=== PATIENT | male | born 1965 | race Caucasian/White ===

== ENCOUNTER 2019-02-27 07:00 | Inpatient (IN) | payer OTHER ==
[~2019-02-27] VITALS: Ht 177.8 cm; Wt 128.6 kg
[2019-04-02] MEDS ORDERED: AMLO5TAB9 PO (10:23)
[2019-04-03] MEDS ORDERED: RINGERS SOLUTION,LACTATED 1,000 ML IV ONE ×2 (04:59→05:00)
[2019-04-03] MEDS ORDERED: CeFAZolin 2 GM/DEXTROSE 50 ML IV ONE ×2 (04:59→07:00)
[2019-04-03 05:51] LABS: BASOPHILS % (AUTO) 1.2 % (0.0-2.0); HEMATOCRIT 45.8 % (41-53); HEMOGLOBIN 15.6 g/dL (13.5-17.5); LYMPHOCYTES % (AUTO) 23.5 % (22.0-44.0); MEAN CORPUSCULAR HEMOGLOBIN 31.4 pg (26.0-34.0); MEAN CORPUSCULAR HGB CONC 34.2 G/dL (31.0-37.0); MEAN CORPUSCULAR VOLUME 92 fL (80-100); MONOCYTES # (AUTO) 0.9 K/uL (0.1-1.0); MONOCYTES % (AUTO) 11.1 % (2.0-9.0); NEUTROPHILS # (AUTO) 5.1 K/uL (1.8-7.7); NEUTROPHILS % (AUTO) 60.2 % (40.0-70.0); PLATELET COUNT (AUTO) 315 K/uL (150-450); RED BLOOD CELL COUNT(AUTO) 4.98 MIL/uL (4.50-5.90); RED CELL DISTRIBUTION WIDTH 13.5 % (11.5-14.5)
[2019-04-03 06:00] LABS: ANION GAP 9 mmol/L (8-16); CALCIUM, TOTAL 8.9 mg/dL (8.8-10.5); CARBON DIOXIDE 27 mmol/L (22-29); CHLORIDE 104 mmol/L (98-107); CREATININE 0.96 mg/dL (0.60-1.30); GLOMERULAR FILTR. RATE CALC > 60 mL/min (>60); GLUCOSE,RANDOM 110 mg/dL (70-110); POTASSIUM 3.9 mmol/L (3.5-5.1); SODIUM SERUM 140 mmol/L (136-145); UREA NITROGEN, BLOOD 12 mg/dL (7-18)
[2019-04-03 06:04] LABS: PROTHROMBIN TIME 10.1 SEC (9.4-11.6)
[2019-04-03 06:06] LABS: ALANINE AMINOTRANSFERASE 32 U/L (12-78); ALBUMIN 3.9 g/dL (3.4-5.0); ALKALINE PHOSPHATASE 86 U/L (46-116); ASPARTATE AMINOTRANSFERASE 16 U/L (15-37); BILIRUBIN,TOTAL 0.5 mg/dL (0.1-1.0); TOTAL PROTEIN, SERUM 7.7 g/dL (6.4-8.2)
[2019-04-03] MEDS ORDERED: VANCOMYCIN HCL 1 GM/VIAL ONE (06:19)
[2019-04-03] MEDS ORDERED: RINGERS LACTATED IV ONE (06:19)
[2019-04-03] MEDS ORDERED: BUPIVACAINE HCL/PF 0.5% 30 ML VIAL ONE (06:20)
[2019-04-03] MEDS ORDERED: MICROFIBRILLAR COLLAGEN 1 GM PACKAGE TP ONE (06:20)
[2019-04-03] MEDS ORDERED: BUPIVACAINE LIPOSOME/PF 1.3%-13.3MG/ML SUSPENSION 20 ML VIAL INJ STA (06:22)
[2019-04-03] MEDS ORDERED: SODIUM CHLORIDE 0.9% 30 ML ONE (07:27)
[2019-04-03] MEDS ORDERED: OxyCODONE HCL 5 MG IR TABLET PO PRN (07:45)
[2019-04-03] MEDS ORDERED: TRANEXAMIC ACID 1,000 MG in DEXTROSE 5%-WATER 50 ML IV ONE (07:45)
[2019-04-03] MEDS ORDERED: MEPERIDINE-PF 25 MG/ML VIAL IVP PRN (07:45)
[2019-04-03] MEDS ORDERED: ZOLPIDEM TARTRATE 5 MG TABLET PO PRN (07:45)
[2019-04-03] MEDS ORDERED: HYDROmorphone 2 MG/ML SYRINGE IVP PRN (07:45)
[2019-04-03] MEDS ORDERED: FentaNYL CITRATE-PF 100 MCG/2 ML VIAL IVP PRN (07:45)
[2019-04-03] MEDS ORDERED: ONDANSETRON HCL 4 MG/2 ML VIAL IVP PRN (07:45)
[2019-04-03] MEDS ORDERED: OXYGEN THERAPY IH SCH (08:00)
[2019-04-03] MEDS ORDERED: BACITRACIN 28.4 GM OINTMENT TP ONE (09:24)
[2019-04-03] MEDS ORDERED: MUPIROCIN CALCIUM 2% 22 GM OINTMENT ONE (09:25)
[2019-04-03] MEDS ORDERED: ZOLPIDEM TARTRATE 10 MG TABLET PO PRN (10:18)
[2019-04-03] MEDS ORDERED: ACETAMINOPHEN 325 MG TABLET PO PRN (11:00)
[2019-04-03] MEDS ORDERED: MAGNESIUM HYDROXIDE SUSPENSION 30 ML UDCUP PO PRN (11:00)
[2019-04-03] MEDS ORDERED: ROCURONIUM BROMIDE 10 MG/ML 5 ML VIAL IVP ONE (12:00)
[2019-04-03] MEDS ORDERED: FentaNYL CITRATE-PF 100 MCG/2 ML VIAL IVP ONE (12:00)
[2019-04-03] MEDS ORDERED: LIDOCAINE/PF 2% 5 ML VIAL INJ ONE (12:00)
[2019-04-03] MEDS ORDERED: PROPOFOL 1% 20 ML VIAL IVP ONE (12:00)
[2019-04-03] MEDS ORDERED: EPHEDrine SULFATE 50 MG/ML VIAL IM ONE (12:00)
[2019-04-03] MEDS ORDERED: MIDAZOLAM HCL 2 MG/2 ML VIAL IVP ONE (12:00)
[2019-04-03] MEDS ORDERED: 0.9% SODIUM CHLORIDE 10 ML VIAL IVP ONE (12:00)
[2019-04-03] MEDS ORDERED: ONDANSETRON HCL 4 MG/2 ML VIAL IVP ONE (12:00)
[2019-04-03] MEDS ORDERED: SUCCINYLCHOLINE CHLORIDE 20 MG/ML 10 ML VIAL IVP ONE (12:00)
[2019-04-03] MEDS ORDERED: HYDROmorphone 2 MG/ML SYRINGE IVP ONE (12:00)
[2019-04-03] MEDS ORDERED: DEXAMETHASONE SOD PHOS 4 MG/ML VIAL IVP ONE (12:00)
[2019-04-03 12:05] VITALS: BP 157/87
[2019-04-03] MEDS: ACETAMINOPHEN 1000 MG/ISO-OSM 100 ML IV SCH ×2 (12:40→18:01)
[2019-04-03] MEDS: HYDROmorphone 2 MG/ML SYRINGE IVP PRN ×3 (12:58→21:59)
[2019-04-03] MEDS: CeFAZolin 2 GM/DEXTROSE 50 ML IV SCH ×2 (14:53→22:49)
[2019-04-03] MEDS: OxyCODONE HCL 10 MG IR TABLET PO PRN ×2 (14:59→19:53)
[2019-04-03] MEDS: CYCLOBENZAPRINE HCL 10 MG TABLET PO PRN (14:59)
[2019-04-03 16:01] VITALS: BP 140/83
[2019-04-03] MEDS: OXYGEN THERAPY IH SCH (19:53)
[2019-04-03 20:09] VITALS: BP 129/76
[2019-04-04 00:28] VITALS: BP 118/98
[2019-04-04] MEDS: CYCLOBENZAPRINE HCL 10 MG TABLET PO PRN (00:31)
[2019-04-04] MEDS: ACETAMINOPHEN 1000 MG/ISO-OSM 100 ML IV SCH ×2 (00:32→06:05)
[2019-04-04 04:00] VITALS: BP 129/75
[2019-04-04] MEDS: HYDROmorphone 2 MG/ML SYRINGE IVP PRN ×4 (04:57→17:43)
[2019-04-04 05:01] LABS: BASOPHILS % (AUTO) 0.2 % (0.0-2.0); EOSINOPHILS % (AUTO) 0 % (1.0-6.0); HEMATOCRIT 40.8 % (41-53); HEMOGLOBIN 13.6 g/dL (13.5-17.5); LYMPHOCYTES # (AUTO) 1.8 K/uL (1.0-4.8); LYMPHOCYTES % (AUTO) 11.5 % (22.0-44.0); MEAN CORPUSCULAR HEMOGLOBIN 30.8 pg (26.0-34.0); MEAN CORPUSCULAR HGB CONC 33.4 G/dL (31.0-37.0); MEAN CORPUSCULAR VOLUME 92 fL (80-100); MONOCYTES # (AUTO) 2.5 K/uL (0.1-1.0); MONOCYTES % (AUTO) 15.6 % (2.0-9.0); NEUTROPHILS # (AUTO) 11.7 K/uL (1.8-7.7); NEUTROPHILS % (AUTO) 72.7 % (40.0-70.0); PLATELET COUNT (AUTO) 297 K/uL (150-450); RED BLOOD CELL COUNT(AUTO) 4.43 MIL/uL (4.50-5.90); RED CELL DISTRIBUTION WIDTH 13.6 % (11.5-14.5)
[2019-04-04 05:12] LABS: ANION GAP 8 mmol/L (8-16); CALCIUM, TOTAL 8.3 mg/dL (8.8-10.5); CARBON DIOXIDE 27 mmol/L (22-29); CHLORIDE 102 mmol/L (98-107); CREATININE 1.01 mg/dL (0.60-1.30); GLOMERULAR FILTR. RATE CALC > 60 mL/min (>60); GLUCOSE,RANDOM 111 mg/dL (70-110); POTASSIUM 3.9 mmol/L (3.5-5.1); SODIUM SERUM 137 mmol/L (136-145); UREA NITROGEN, BLOOD 12 mg/dL (7-18)
[2019-04-04 07:30] VITALS: BP 153/97
[2019-04-04] MEDS: OXYGEN THERAPY IH SCH ×2 (08:00→20:00)
[2019-04-04] MEDS: OxyCODONE HCL 10 MG IR TABLET PO PRN (08:20)
[2019-04-04] MEDS: FAMOTIDINE 20 MG TABLET PO SCH (10:04)
[2019-04-04] MEDS: ENOXAPARIN SODIUM 30 MG/0.3 ML PF SYRINGE SQ SCH ×2 (10:05→20:12)
[2019-04-04 11:46] VITALS: BP 120/73
[2019-04-04 15:40] VITALS: BP 157/77
[2019-04-04 19:57] VITALS: BP 139/81
[2019-04-04] MEDS: HYDROCODONE/ACETAMINOPHEN 10-325 MG TABLET PO PRN ×2 (20:12→23:29)
[2019-04-05 00:07] VITALS: BP 142/81
[2019-04-05] MEDS: HYDROCODONE/ACETAMINOPHEN 10-325 MG TABLET PO PRN ×2 (03:43→12:47)
[2019-04-05 05:49] VITALS: BP 152/78
[2019-04-05 07:40] VITALS: BP 146/80
[2019-04-05] MEDS: OXYGEN THERAPY IH SCH (08:00)
[2019-04-05] MEDS: ENOXAPARIN SODIUM 30 MG/0.3 ML PF SYRINGE SQ SCH (08:12)
[2019-04-05] MEDS: FAMOTIDINE 20 MG TABLET PO SCH (08:12)
[2019-04-05] MEDS: HYDROmorphone 2 MG/ML SYRINGE IVP PRN (10:10)
[2019-04-05 11:10] VITALS: BP 150/99
[2019-04-05 15:25] VITALS: BP 156/93
[2019-04-05] MEDS ORDERED: PNEUMOCOCCAL VACCINE POLYVALENT 0.5 ML VIAL [PPSV23] IM ONE (16:30)
[2019-04-12] MEDS ORDERED: DOCU-342 PO (13:36)
== END 2019-04-05 16:37 | DRG 481 ==
LOC: 6N 04-03 05:10 → 4E 04-03 06:09
PROVIDERS: ADMIT Orthopaedic Surgery; ATTEND Orthopaedic Surgery
PROC: 0SB94ZZ Excision of Right Hip Joint, Percutaneous Endoscopic Approach (ICD-10-PCS; 2019-04-03)
PROC: 0MQL4ZZ Repair Right Hip Bursa and Ligament, Percutaneous Endoscopic Approach (ICD-10-PCS; principal; 2019-04-03 07:00)
DX: S73.101A Unspecified sprain of right hip, initial encounter (principal); E44.0 Moderate protein-calorie malnutrition; Z68.41 Body mass index [BMI] 40.0-44.9, adult; E66.01 Morbid (severe) obesity due to excess calories; D72.829 Elevated white blood cell count, unspecified; X58.XXXA Exposure to other specified factors, initial encounter; Y93.89 Activity, other specified; Y92.89 Other specified places as the place of occurrence of the external cause; Z85.47 Personal history of malignant neoplasm of testis; Y99.8 Other external cause status
CPT/HCPCS: 73502; 86850; 86900; 86901; 87081; 88304; 88311; 93005; 97110; 97116; 97163; 97166; 97530; 97535; C9290; G0378; J0131; J0330; J0690; J1100; J1170; J1650; J2250; J2405; J2704; J3010; J3370; J3490; J7060; J7120

== ENCOUNTER 2019-04-05 16:25 | Inpatient (IN) | payer OTHER ==
[~2019-04-05] VITALS: Ht 177.8 cm; Wt 127.0 kg
[~2019-04-05 16:25] MED LIST: AMLO5TAB9 PO
[2019-04-05] MEDS ORDERED: ONDANSETRON HCL 4 MG TABLET PO PRN (17:30)
[2019-04-05] MEDS ORDERED: MAGNESIUM HYDROXIDE SUSPENSION 30 ML UDCUP PO PRN (17:30)
[2019-04-05] MEDS ORDERED: CYCLOBENZAPRINE HCL 10 MG TABLET PO PRN (17:30)
[2019-04-05] MEDS ORDERED: INFLUENZA VIRUS VACCINE QVS 2019-20 (3YR+)/PF 60 MCG/0.5 ML SYRINGE IM ONE (17:45)
[2019-04-05] MEDS ORDERED: PNEUMOCOCCAL VACCINE POLYVALENT 0.5 ML VIAL [PPSV23] IM ONE (19:00)
[2019-04-05] MEDS: DOCUSATE SODIUM 100 MG CAPSULE PO SCH (20:20)
[2019-04-05] MEDS: SENNA 187 MG TABLET PO SCH (20:20)
[2019-04-05 20:22] VITALS: BP 138/79
[2019-04-05] MEDS: ACETAMINOPHEN 325 MG TABLET PO PRN (20:22)
[2019-04-05] MEDS: OxyCODONE HCL/ACETAMINOPHEN 10-325 MG TABLET PO PRN (21:20)
[2019-04-05 23:19] VITALS: BP 147/79
[2019-04-06] MEDS: 0.9% SODIUM CHLORIDE 10 ML SYRINGE IVP SCH ×2 (03:37→09:24)
[2019-04-06 07:37] LABS: LYMPHOCYTES # (AUTO) 1.2 K/uL (1.0-4.8); MONOCYTES # (AUTO) 1.6 K/uL (0.1-1.0); NEUTROPHILS % (AUTO) 77.2 % (40.0-70.0)
[2019-04-06 08:02] LABS: ALANINE AMINOTRANSFERASE 53 U/L (12-78); ALBUMIN 2.7 g/dL (3.4-5.0); ALKALINE PHOSPHATASE 77 U/L (46-116); ANION GAP 14 mmol/L (8-16); ASPARTATE AMINOTRANSFERASE 47 U/L (15-37); BILIRUBIN,TOTAL 0.8 mg/dL (0.1-1.0); CALCIUM, TOTAL 8.7 mg/dL (8.8-10.5); CARBON DIOXIDE 28 mmol/L (22-29); CHLORIDE 99 mmol/L (98-107); CREATININE 0.97 mg/dL (0.60-1.30); GLOMERULAR FILTR. RATE CALC > 60 mL/min (>60); GLUCOSE,RANDOM 143 mg/dL (70-110); POTASSIUM 3.8 mmol/L (3.5-5.1); SODIUM SERUM 141 mmol/L (136-145); TOTAL PROTEIN, SERUM 7.1 g/dL (6.4-8.2); UREA NITROGEN, BLOOD 11 mg/dL (7-18)
[2019-04-06 08:18] LABS: BASOPHILS % (AUTO) 0.2 % (0.0-2.0); EOSINOPHILS % (AUTO) 0.9 % (1.0-6.0); HEMATOCRIT 40.7 % (41-53); LYMPHOCYTES % (AUTO) 9.1 % (22.0-44.0); MEAN CORPUSCULAR HEMOGLOBIN 31.3 pg (26.0-34.0); MEAN CORPUSCULAR HGB CONC 34.3 G/dL (31.0-37.0); MEAN CORPUSCULAR VOLUME 91 fL (80-100); MONOCYTES % (AUTO) 12.6 % (2.0-9.0); NEUTROPHILS # (AUTO) 10.1 K/uL (1.8-7.7); PLATELET COUNT (AUTO) 280 K/uL (150-450); RED BLOOD CELL COUNT(AUTO) 4.47 MIL/uL (4.50-5.90); RED CELL DISTRIBUTION WIDTH 13.6 % (11.5-14.5)
[2019-04-06 09:01] VITALS: BP 136/80
[2019-04-06] MEDS: DOCUSATE SODIUM 100 MG CAPSULE PO SCH ×2 (09:24→20:25)
[2019-04-06] MEDS: HYDROCODONE/ACETAMINOPHEN 10-325 MG TABLET PO PRN ×2 (09:24→13:54)
[2019-04-06] MEDS: FAMOTIDINE 20 MG TABLET PO SCH (09:24)
[2019-04-06] MEDS: ENOXAPARIN SODIUM 30 MG/0.3 ML PF SYRINGE SQ SCH (09:24)
[2019-04-06] MEDS: AmLODIPine BESYLATE 5 MG TABLET PO SCH (12:40)
[2019-04-06 16:00] VITALS: BP 120/74
[2019-04-06] MEDS: SENNA 187 MG TABLET PO SCH (20:25)
[2019-04-06] MEDS: OxyCODONE HCL/ACETAMINOPHEN 10-325 MG TABLET PO PRN (20:26)
[2019-04-07 04:28] VITALS: BP 156/58
[2019-04-07 07:30] VITALS: BP 138/86
[2019-04-07] MEDS: DOCUSATE SODIUM 250 MG CAPSULE PO SCH ×3 (09:00→20:15)
[2019-04-07] MEDS: OxyCODONE HCL/ACETAMINOPHEN 10-325 MG TABLET PO PRN ×2 (09:20→21:07)
[2019-04-07] MEDS: ENOXAPARIN SODIUM 30 MG/0.3 ML PF SYRINGE SQ SCH (09:21)
[2019-04-07] MEDS: FAMOTIDINE 20 MG TABLET PO SCH (09:21)
[2019-04-07] MEDS: AmLODIPine BESYLATE 5 MG TABLET PO SCH (09:21)
[2019-04-07 16:26] VITALS: BP 125/67
[2019-04-07] MEDS: SENNA 187 MG TABLET PO SCH (20:16)
[2019-04-07] MEDS: MELATONIN 3 MG TABLET PO PRN (20:19)
[2019-04-08 06:00] VITALS: BP 134/77
[2019-04-08] MEDS: AmLODIPine BESYLATE 5 MG TABLET PO SCH (08:00)
[2019-04-08] MEDS: FAMOTIDINE 20 MG TABLET PO SCH (08:01)
[2019-04-08] MEDS: DOCUSATE SODIUM 250 MG CAPSULE PO SCH ×2 (08:01→20:46)
[2019-04-08] MEDS: ENOXAPARIN SODIUM 30 MG/0.3 ML PF SYRINGE SQ SCH (08:01)
[2019-04-08] MEDS: ACETAMINOPHEN 325 MG TABLET PO PRN ×2 (08:01→12:08)
[2019-04-08 08:25] VITALS: BP 130/66
[2019-04-08 16:08] VITALS: BP 120/66
[2019-04-08] MEDS: SENNA 187 MG TABLET PO SCH (20:46)
[2019-04-08] MEDS: OxyCODONE HCL/ACETAMINOPHEN 10-325 MG TABLET PO PRN (20:47)
[2019-04-08] MEDS: MELATONIN 3 MG TABLET PO PRN (23:02)
[2019-04-09 00:21] VITALS: BP 129/76
[2019-04-09 08:00] VITALS: BP 134/70
[2019-04-09] MEDS: ENOXAPARIN SODIUM 30 MG/0.3 ML PF SYRINGE SQ SCH (08:01)
[2019-04-09] MEDS: FAMOTIDINE 20 MG TABLET PO SCH (08:02)
[2019-04-09] MEDS: DOCUSATE SODIUM 250 MG CAPSULE PO SCH ×2 (08:02→20:42)
[2019-04-09] MEDS: AmLODIPine BESYLATE 5 MG TABLET PO SCH (08:02)
[2019-04-09 16:04] VITALS: BP 156/90
[2019-04-09] MEDS: SENNA 187 MG TABLET PO SCH (20:42)
[2019-04-09] MEDS: OxyCODONE HCL/ACETAMINOPHEN 10-325 MG TABLET PO PRN (20:42)
[2019-04-09] MEDS: MELATONIN 3 MG TABLET PO PRN (20:44)
[2019-04-10] VITALS: BP 136/80
[2019-04-10 06:18] LABS: BASOPHILS % (AUTO) 1.2 % (0.0-2.0); EOSINOPHILS % (AUTO) 5.9 % (1.0-6.0); HEMATOCRIT 36.5 % (41-53); HEMOGLOBIN 12.7 g/dL (13.5-17.5); LYMPHOCYTES # (AUTO) 1.9 K/uL (1.0-4.8); LYMPHOCYTES % (AUTO) 19.1 % (22.0-44.0); MEAN CORPUSCULAR HEMOGLOBIN 31.6 pg (26.0-34.0); MEAN CORPUSCULAR HGB CONC 34.7 G/dL (31.0-37.0); MEAN CORPUSCULAR VOLUME 91 fL (80-100); MONOCYTES # (AUTO) 1.4 K/uL (0.1-1.0); MONOCYTES % (AUTO) 14.2 % (2.0-9.0); NEUTROPHILS % (AUTO) 59.6 % (40.0-70.0); PLATELET COUNT (AUTO) 414 K/uL (150-450); RED BLOOD CELL COUNT(AUTO) 4.01 MIL/uL (4.50-5.90); RED CELL DISTRIBUTION WIDTH 13.3 % (11.5-14.5)
[2019-04-10 07:15] VITALS: BP 142/84
[2019-04-10] MEDS: FAMOTIDINE 20 MG TABLET PO SCH (08:13)
[2019-04-10] MEDS: AmLODIPine BESYLATE 5 MG TABLET PO SCH (08:13)
[2019-04-10] MEDS: ENOXAPARIN SODIUM 30 MG/0.3 ML PF SYRINGE SQ SCH (08:13)
[2019-04-10] MEDS: DOCUSATE SODIUM 250 MG CAPSULE PO SCH ×2 (08:13→20:40)
[2019-04-10] MEDS: FERROUS GLUCONATE 324 MG TABLET PO SCH (17:50)
[2019-04-10 19:00] VITALS: BP 153/66
[2019-04-10] MEDS: MELATONIN 3 MG TABLET PO PRN (20:39)
[2019-04-10] MEDS: SENNA 187 MG TABLET PO SCH (20:40)
[2019-04-10] MEDS: HYDROCODONE/ACETAMINOPHEN 10-325 MG TABLET PO PRN (20:40)
[2019-04-11 01:00] VITALS: BP 123/72
[2019-04-11 07:20] VITALS: BP 131/69
[2019-04-11] MEDS: FAMOTIDINE 20 MG TABLET PO SCH (08:10)
[2019-04-11] MEDS: DOCUSATE SODIUM 250 MG CAPSULE PO SCH ×2 (08:10→21:21)
[2019-04-11] MEDS: AmLODIPine BESYLATE 10 MG TABLET PO SCH (08:10)
[2019-04-11] MEDS: FERROUS GLUCONATE 324 MG TABLET PO SCH ×2 (08:10→21:21)
[2019-04-11] MEDS: ENOXAPARIN SODIUM 30 MG/0.3 ML PF SYRINGE SQ SCH (08:11)
[2019-04-11 08:30] LABS: BASOPHILS % (AUTO) 1.1 % (0.0-2.0); EOSINOPHILS % (AUTO) 4.6 % (1.0-6.0); HEMOGLOBIN 13.4 g/dL (13.5-17.5); LYMPHOCYTES # (AUTO) 1.7 K/uL (1.0-4.8); LYMPHOCYTES % (AUTO) 17.6 % (22.0-44.0); MEAN CORPUSCULAR HEMOGLOBIN 31.3 pg (26.0-34.0); MEAN CORPUSCULAR HGB CONC 34.3 G/dL (31.0-37.0); MEAN CORPUSCULAR VOLUME 91 fL (80-100); MONOCYTES # (AUTO) 0.6 K/uL (0.1-1.0); MONOCYTES % (AUTO) 6.1 % (2.0-9.0); NEUTROPHILS % (AUTO) 70.6 % (40.0-70.0); PLATELET COUNT (AUTO) 476 K/uL (150-450); RED BLOOD CELL COUNT(AUTO) 4.28 MIL/uL (4.50-5.90); RED CELL DISTRIBUTION WIDTH 13.2 % (11.5-14.5)
[2019-04-11] MEDS ORDERED: INFLUENZA VIRUS VACCINE QVS 2019-20 (3YR+)/PF 60 MCG/0.5 ML SYRINGE IM ONE (14:30)
[2019-04-11 16:06] VITALS: BP 137/84
[2019-04-11] MEDS: SENNA 187 MG TABLET PO SCH (21:00)
[2019-04-11] MEDS: MELATONIN 3 MG TABLET PO PRN (21:21)
[2019-04-11] MEDS: HYDROCODONE/ACETAMINOPHEN 10-325 MG TABLET PO PRN (21:21)
[2019-04-12] VITALS: BP 132/76
[2019-04-12 08:00] VITALS: BP 136/89
[2019-04-12] MEDS: ASPIRIN 325 MG TABLET PO SCH ×2 (08:21→21:44)
[2019-04-12] MEDS: DOCUSATE SODIUM 250 MG CAPSULE PO SCH ×2 (08:21→21:44)
[2019-04-12] MEDS: FAMOTIDINE 20 MG TABLET PO SCH (08:21)
[2019-04-12] MEDS: AmLODIPine BESYLATE 10 MG TABLET PO SCH (08:21)
[2019-04-12] MEDS: FERROUS GLUCONATE 324 MG TABLET PO SCH ×2 (08:21→21:43)
[2019-04-12] MEDS ORDERED: HYDR-4455 PO (13:36)
[2019-04-12] MEDS ORDERED: FAMO20 PO (13:36)
[2019-04-12] MEDS ORDERED: FERG325 PO (13:36)
[2019-04-12] MEDS ORDERED: DOCU250C91 PO (13:36)
[2019-04-12] MEDS ORDERED: ASPI-1484 PO (13:36)
[2019-04-12 15:52] VITALS: BP 124/78
[2019-04-12] MEDS ORDERED: INFLUENZA VIRUS VACCINE QVS 2019-20 (3YR+)/PF 60 MCG/0.5 ML SYRINGE IM ONE (16:45)
[2019-04-12] MEDS: MELATONIN 3 MG TABLET PO PRN (21:44)
[2019-04-12] MEDS: HYDROCODONE/ACETAMINOPHEN 10-325 MG TABLET PO PRN (21:44)
[2019-04-12] MEDS: SENNA 187 MG TABLET PO SCH (21:44)
[2019-04-13 00:06] VITALS: BP 125/74
[2019-04-13 08:08] VITALS: BP 123/78
[2019-04-13] MEDS: DOCUSATE SODIUM 250 MG CAPSULE PO SCH (08:09)
[2019-04-13] MEDS: FAMOTIDINE 20 MG TABLET PO SCH (08:09)
[2019-04-13] MEDS: FERROUS GLUCONATE 324 MG TABLET PO SCH (08:09)
[2019-04-13] MEDS: ASPIRIN 325 MG TABLET PO SCH (08:09)
[2019-04-13] MEDS: AmLODIPine BESYLATE 10 MG TABLET PO SCH (08:09)
== END 2019-04-13 08:30 | disposition home or self-care (01) | DRG 537 ==
LOC: 2WR 16:25
PROVIDERS: ADMIT Physical Medicine & Rehabilitation; ATTEND Physical Medicine & Rehabilitation
DX: S73.191A Other sprain of right hip, initial encounter (principal); Z68.41 Body mass index [BMI] 40.0-44.9, adult; E46 Unspecified protein-calorie malnutrition; E66.01 Morbid (severe) obesity due to excess calories; G47.00 Insomnia, unspecified; I10 Essential (primary) hypertension; D72.829 Elevated white blood cell count, unspecified; M62.838 Other muscle spasm; K59.03 Drug induced constipation; K31.89 Other diseases of stomach and duodenum; T40.2X5A Adverse effect of other opioids, initial encounter; D64.9 Anemia, unspecified; V89.2XXA Person injured in unspecified motor-vehicle accident, traffic, initial encounter; Z79.899 Other long term (current) drug therapy; Z85.47 Personal history of malignant neoplasm of testis; Z90.79 Acquired absence of other genital organ(s); Y92.89 Other specified places as the place of occurrence of the external cause; Y93.89 Activity, other specified; Y99.8 Other external cause status; Z79.82 Long term (current) use of aspirin
CPT/HCPCS: 82270; 82271; 83036; 87081; 90686; 93970; 97110; 97112; 97116; 97530; 97535; 99366; J1650

== ENCOUNTER 2019-04-18 09:16 | Emergency (ER) | payer OTHER ==
[~2019-04-18] VITALS: Ht 177.8 cm; Wt 127.0 kg
[~2019-04-18 09:16] MED LIST changes: +ASPI-1484 PO; +DOCU250C91 PO; +FAMO20 PO; +FERG325 PO; +HYDR-4455 PO
[2019-04-18] MEDS ORDERED: ENOX30DI5 SQ (09:33)
[2019-04-18 13:00] VITALS: BP 129/75
[2019-04-18 13:49] LABS: BASOPHILS % (AUTO) 1.2 % (0.0-2.0); EOSINOPHILS % (AUTO) 4.1 % (1.0-6.0); HEMATOCRIT 39.8 % (41-53); HEMOGLOBIN 13.4 g/dL (13.5-17.5); LYMPHOCYTES # (AUTO) 1.9 K/uL (1.0-4.8); LYMPHOCYTES % (AUTO) 20.1 % (22.0-44.0); MEAN CORPUSCULAR HEMOGLOBIN 30.7 pg (26.0-34.0); MEAN CORPUSCULAR HGB CONC 33.6 G/dL (31.0-37.0); MEAN CORPUSCULAR VOLUME 92 fL (80-100); MONOCYTES # (AUTO) 0.5 K/uL (0.1-1.0); MONOCYTES % (AUTO) 5.6 % (2.0-9.0); NEUTROPHILS # (AUTO) 6.6 K/uL (1.8-7.7); PLATELET COUNT (AUTO) 587 K/uL (150-450); RED BLOOD CELL COUNT(AUTO) 4.34 MIL/uL (4.50-5.90); RED CELL DISTRIBUTION WIDTH 12.9 % (11.5-14.5)
[2019-04-18 14:25] LABS: B-TYPE NATRIURETIC PEPTIDE 49 pg/mL (0-100)
[2019-04-18 14:34] LABS: ANION GAP 7 mmol/L (8-16); CARBON DIOXIDE 30 mmol/L (22-29); CHLORIDE 103 mmol/L (98-107); CREATININE 0.97 mg/dL (0.60-1.30); GLOMERULAR FILTR. RATE CALC > 60 mL/min (>60); GLUCOSE,RANDOM 144 mg/dL (70-110); POTASSIUM 4.4 mmol/L (3.5-5.1); SODIUM SERUM 140 mmol/L (136-145)
[2019-04-18 16:37] LABS: UREA NITROGEN, BLOOD 16 mg/dL (7-18)
== END 2019-04-18 14:52 | disposition left against medical advice (07) ==
LOC: EMS 09:24
DX: R60.9 Edema, unspecified (principal); I10 Essential (primary) hypertension; Z85.47 Personal history of malignant neoplasm of testis; Z98.890 Other specified postprocedural states; Z79.899 Other long term (current) drug therapy
CPT/HCPCS: 93971

== ENCOUNTER 2021-07-14 10:09 | Emergency (ER) | payer OTHER ==
[~2021-07-14] VITALS: Ht 177.8 cm; Wt 122.7 kg
[~2021-07-14 10:09] MED LIST changes: +AMLO-257 PO; -AMLO5TAB9 PO; -ASPI-1484 PO; +ASPI-2 PO; +DOCU-350 PO; -DOCU250C91 PO; +ENOX30DI5 SQ; -FAMO20 PO; -FERG325 PO
[2021-07-14 11:41] LABS: BASOPHILS % (AUTO) 1.4 % (0.0-2.0); EOSINOPHILS % (AUTO) 0.9 % (1.0-6.0); HEMATOCRIT 45.5 % (41-53); HEMOGLOBIN 15.9 g/dL (13.5-17.5); LYMPHOCYTES # (AUTO) 2.3 K/uL (1.0-4.8); LYMPHOCYTES % (AUTO) 23.1 % (22.0-44.0); MEAN CORPUSCULAR HEMOGLOBIN 31.3 pg (26.0-34.0); MEAN CORPUSCULAR HGB CONC 34.9 G/dL (31.0-37.0); MEAN CORPUSCULAR VOLUME 90 fL (80-100); MONOCYTES # (AUTO) 0.9 K/uL (0.1-1.0); MONOCYTES % (AUTO) 9.5 % (2.0-9.0); NEUTROPHILS # (AUTO) 6.4 K/uL (1.8-7.7); NEUTROPHILS % (AUTO) 65.1 % (40.0-70.0); PLATELET COUNT (AUTO) 389 K/uL (150-450); RED BLOOD CELL COUNT(AUTO) 5.07 MIL/uL (4.50-5.90); RED CELL DISTRIBUTION WIDTH 13.5 % (11.5-14.5)
[2021-07-14 11:50] LABS: AMPHET/METH SCREEN,URINE NEGATIVE (NEGATIVE); BARBITURATE SCREEN, URINE NEGATIVE (NEGATIVE); BENZODIAZEPINES SCREEN,URINE NEGATIVE (NEGATIVE); CANNABINOID SCREEN,URINE NEGATIVE (NEGATIVE); COCAINE SCREEN,URINE NEGATIVE (NEGATIVE); METHADONE SCREEN, URINE NEGATIVE (NEGATIVE); OPIATE SCREEN,URINE NEGATIVE (NEGATIVE)
[2021-07-14 11:50] LABS: ANION GAP 7 mmol/L (8-16); CALCIUM, TOTAL 8.8 mg/dL (8.8-10.5); CARBON DIOXIDE 33 mmol/L (22-29); CHLORIDE 102 mmol/L (98-107); CREATININE 0.95 mg/dL (0.60-1.30); GLOMERULAR FILTR. RATE CALC > 60 mL/min (>60); GLUCOSE,RANDOM 95 mg/dL (70-110); POTASSIUM 4.4 mmol/L (3.5-5.1); SODIUM SERUM 142 mmol/L (136-145); UREA NITROGEN, BLOOD 10 mg/dL (7-18)
[2021-07-14 11:51] VITALS: BP 151/105
[2021-07-14 11:56] LABS: ALANINE AMINOTRANSFERASE 29 U/L (12-78); ALBUMIN 4.1 g/dL (3.4-5.0); ALKALINE PHOSPHATASE 92 U/L (46-116); ASPARTATE AMINOTRANSFERASE 18 U/L (15-37); BILIRUBIN,TOTAL 0.3 mg/dL (0.1-1.0); TOTAL PROTEIN, SERUM 8.7 g/dL (6.4-8.2)
[2021-07-14 12:01] LABS: PHENCYCLIDINE SCREEN,URINE NEGATIVE (NEGATIVE)
== END 2021-07-14 13:52 | disposition home or self-care (01) ==
LOC: EMS 10:13
DX: F32.9 Major depressive disorder, single episode, unspecified (principal); R45.851 Suicidal ideations; F10.10 Alcohol abuse, uncomplicated; Y90.6 Blood alcohol level of 120-199 mg/100 ml
CPT/HCPCS: 36415; 80053; 80307; 85025; 99285; G0480

== ENCOUNTER 2024-01-27 09:49 | Inpatient (IN) | payer MEDICAID, OTHER ==
[~2024-01-27] VITALS: Ht 177.8 cm; Wt 123.4 kg
[~2024-01-27 09:49] MED LIST changes: -DOCU-350 PO; +DOCU-412 PO; -ENOX30DI5 SQ; +ENOX30SY19 SQ
[2024-01-27 10:36] LABS: BASOPHILS % (AUTO) 0.7 % (0.0-2.0); EOSINOPHILS % (AUTO) 1.1 % (1.0-6.0); HEMATOCRIT 46.4 % (41-53); HEMOGLOBIN 15.4 g/dL (13.5-17.5); LYMPHOCYTES # (AUTO) 1.6 K/uL (1.0-4.8); LYMPHOCYTES % (AUTO) 24.1 % (22.0-44.0); MEAN CORPUSCULAR HEMOGLOBIN 30.9 pg (26.0-34.0); MEAN CORPUSCULAR HGB CONC 33.2 G/dL (31.0-37.0); MEAN CORPUSCULAR VOLUME 93 fL (80-100); MONOCYTES # (AUTO) 0.6 K/uL (0.1-1.0); NEUTROPHILS # (AUTO) 4.2 K/uL (1.8-7.7); NEUTROPHILS % (AUTO) 64.1 % (40.0-70.0); PLATELET COUNT (AUTO) 353 K/uL (150-450); RED BLOOD CELL COUNT(AUTO) 4.97 MIL/uL (4.50-5.90); RED CELL DISTRIBUTION WIDTH 13.9 % (11.5-14.5); WHITE BLOOD COUNT (AUTO) 6.5 K/uL (4.5-11.0)
[2024-01-27 10:45] LABS: ANION GAP 9 mmol/L (8-16); CALCIUM, TOTAL 8.3 mg/dL (8.8-10.5); CARBON DIOXIDE 26 mmol/L (22-29); CHLORIDE 100 mmol/L (98-107); CREATININE 0.83 mg/dL (0.60-1.30); GLOMERULAR FILTR. RATE CALC > 60 mL/min (>60); GLUCOSE,RANDOM 105 mg/dL (70-110); POTASSIUM 4.3 mmol/L (3.5-5.1); SODIUM SERUM 135 mmol/L (136-145); UREA NITROGEN, BLOOD 6 mg/dL (7-18)
[2024-01-27 10:46] LABS: ALCOHOL, BLOOD (SERUM) 155 mg/dL (0-10)
[2024-01-27 10:58] LABS: COVID AG,FIA SOURCE NASAL SWAB
[2024-01-27 11:24] LABS: SARS-COV2 (COVID) ANTIGEN,FIA Negative (Negative)
[2024-01-27 11:59] LABS: ALCOHOL, URINE DRUG SCREEN POSITIVE (NEGATIVE); AMPHET/METH SCREEN,URINE NEGATIVE (NEGATIVE); BARBITURATE SCREEN, URINE NEGATIVE (NEGATIVE); BENZODIAZEPINES SCREEN,URINE NEGATIVE (NEGATIVE); CANNABINOID SCREEN,URINE NEGATIVE (NEGATIVE); COCAINE SCREEN,URINE NEGATIVE (NEGATIVE); METHADONE SCREEN, URINE NEGATIVE (NEGATIVE); OPIATE SCREEN,URINE NEGATIVE (NEGATIVE); PHENCYCLIDINE SCREEN,URINE NEGATIVE (NEGATIVE)
[2024-01-27] MEDS: ChlordiazePOXIDE HCL 25 MG CAPSULE PO ONE ×2 (12:24→16:45)
[2024-01-27] MEDS: ONDANSETRON HCL 4 MG TABLET PO ONE (12:25)
[2024-01-27] MEDS: LORazepam 2 MG/ML VIAL IVP ONE (16:47)
[2024-01-27] MEDS: SODIUM CHLORIDE 0.9% 1,000 ML IV ONE (16:47)
[2024-01-28] MEDS: ACETAMINOPHEN 500 MG TABLET PO ONE (09:11)
[2024-01-28 14:28] VITALS: BP 155/98; PULSE 98; RESP 18; TEMP 98
[2024-01-28] MEDS ORDERED: HALOPERIDOL 5 MG TABLET PO PRN (14:30)
[2024-01-28] MEDS ORDERED: LORazepam 2 MG TABLET PO PRN (14:30)
[2024-01-28 14:50] VITALS: BP 155/99; PULSE 90; RESP 18; TEMP 98.7; O2SAT 98
[2024-01-28] MEDS: AmLODIPine BESYLATE 10 MG TABLET PO SCH (16:53)
[2024-01-28] MEDS ORDERED: BENZOCAINE/MENTHOL LOZENGE PO PRN (20:00)
[2024-01-28] MEDS ORDERED: DOCUSATE SODIUM 100 MG CAPSULE PO PRN (20:00)
[2024-01-28] MEDS ORDERED: ALBUTEROL SULFATE HFA 90 MCG/PUFF 8 GM INHALER IH PRN (20:00)
[2024-01-28] MEDS ORDERED: MAG HYDROX/ALUMINUM HYD/SIMETH ES 30 ML SUSPENSION UDCUP PO PRN (20:00)
[2024-01-28] MEDS ORDERED: ONDANSETRON HCL 4 MG TABLET PO PRN (20:00)
[2024-01-28] MEDS ORDERED: BACITRACIN 28 GM OINTMENT TP PRN (20:00)
[2024-01-28] MEDS ORDERED: LOPERAMIDE HCL 2 MG CAPSULE PO PRN (20:00)
[2024-01-28] MEDS ORDERED: OMEPRAZOLE 20 MG CAPSULE PO PRN (20:00)
[2024-01-28] MEDS ORDERED: IBUPROFEN 600 MG TABLET PO PRN (20:00)
[2024-01-28] MEDS ORDERED: MAGNESIUM HYDROXIDE SUSPENSION 30 ML UDCUP PO PRN (20:00)
[2024-01-28] MEDS ORDERED: PETROLATUM,WHITE 28 GM JELLY TP PRN (20:00)
[2024-01-28] MEDS ORDERED: CloNIDine HCL 0.1 MG TABLET PO PRN (20:00)
[2024-01-28 21:23] VITALS: BP 152/97; PULSE 88; RESP 18; TEMP 97.9; O2SAT 97
[2024-01-28 21:52] VITALS: BP 151/97; PULSE 88; RESP 18; TEMP 97.9; O2SAT 97
[2024-01-28] MEDS: ACETAMINOPHEN 325 MG TABLET PO PRN (21:55)
[2024-01-28 22:55] VITALS: RESP 18
[2024-01-29 09:38] VITALS: BP 135/104; PULSE 98; RESP 19; TEMP 97.3; O2SAT 98
[2024-01-29 16:25] VITALS: BP 135/87; PULSE 90; RESP 18; TEMP 98.3
[2024-01-29 17:25] VITALS: BP 161/81; PULSE 88; RESP 18; TEMP 98.4
[2024-01-29] MEDS: ZOLPIDEM TARTRATE 10 MG TABLET PO PRN (21:30)
[2024-01-29 22:25] VITALS: BP 133/80; PULSE 75; RESP 18; TEMP 97.4
[2024-01-30 08:00] VITALS: BP 123/63; PULSE 91; RESP 18; TEMP 96; O2SAT 96
== END 2024-01-30 18:34 | disposition home or self-care (01) | DRG 754 ==
LOC: EMS 09:59 → 3EI 01-28 14:49
PROVIDERS: ADMIT Psychiatry & Neurology Psychiatry; ATTEND Psychiatry & Neurology Psychiatry
DX: F32.9 Major depressive disorder, single episode, unspecified (principal); R45.851 Suicidal ideations; C62.90 Malignant neoplasm of unspecified testis, unspecified whether descended or undescended; F10.129 Alcohol abuse with intoxication, unspecified; E66.9 Obesity, unspecified; F32.A Depression, unspecified; Z20.822 Contact with and (suspected) exposure to COVID-19; F41.9 Anxiety disorder, unspecified; K21.9 Gastro-esophageal reflux disease without esophagitis; I10 Essential (primary) hypertension; G47.00 Insomnia, unspecified; Z79.82 Long term (current) use of aspirin; Z79.899 Other long term (current) drug therapy; Z85.47 Personal history of malignant neoplasm of testis; Z68.39 Body mass index [BMI] 39.0-39.9, adult
CPT/HCPCS: 80048; 80307; 85025; 99285; G0480; J2060; J7030; Q0162